=== PATIENT | male | born 2000 | race Two or more races ===

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

== ENCOUNTER 2022-01-19 16:29 | Emergency (ER) | payer OTHER ==
[2022-01-19 16:32] VITALS: BP 126/84; PULSE 121; RESP 20; TEMP 97.8; BMI 19.8
[2022-01-19] MEDS ORDERED: ACETAMINOPHEN 500 MG TABLET (FP) PO ONE (17:28)
[2022-01-19] MEDS ORDERED: IBUPROFEN 600 MG TABLET (FP) PO ONE ×2 (17:28→17:49)
[2022-01-19] MEDS ORDERED: ACETAMINOPHEN 500 MG TABLET (FP) ONE (17:50)
[2022-01-19 18:44] LABS: INR 1.14 (0.83-1.09); PROTHROMBIN TIME (PATIENT) 13.1 SEC (9.7-13.0)
[2022-01-19 18:46] LABS: ACTIVATED PTT 30.4 SECONDS (25.2-36.5)
[2022-01-19 18:55] LABS: CALCIUM 9.7 mg/dL (8.5-10.1)
[2022-01-19 18:56] LABS: BLOOD UREA NITROGEN 15.4 mg/dL (7-18)
[2022-01-19 19:00] LABS: BILIRUBIN,TOTAL 0.9 mg/dL (0.2-1); TOT PROT 8.2 g/dl (6.4-8.2)
[2022-01-19 19:39] LABS: BASO % 0.2 % (0-2.0); HEMATOCRIT 46.5 % (35.4-49); HEMOGLOBIN 16.6 GM/dL (11.7-16.9); LYMPH % 4.8 % (8-40); MCH 30.8 pg (25.7-33.7); MCHC 35.7 g/dl (32.0-35.9); MEAN CELL VOLUME 86.3 fl (80-96); MEAN PLT VOLUME 7.8 fl (7.5-11.1); MONO % 6.9 % (3.8-10.2); NEUT % 88.1 % (42.8-82.8); PLATELET COUNT 295 10^3/uL (134-434); RBC 5.39 M/mm3 (4.00-5.60); RDW 12.9 % (11.9-15.9)
== END 2022-01-19 21:25 | disposition home or self-care (01) ==
LOC: JER 16:29
DX: R07.89 Other chest pain (principal)
CPT/HCPCS: 0241U-QW; 36415; 71046-TC-FY; 80053; 84484; 85025; 85379; 85610; 85730; 93005; 93010; 99285-25